=== PATIENT | male | born 2000 | race Caucasian/White ===

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

== ENCOUNTER 2022-10-04 20:21 | Inpatient (IN) | payer MEDICAID, OTHER ==
--- NOTE | 2022-10-05 02:18 | ED ---
General Adult HPI - General Chief complaint: Psychiatric Symptoms Stated complaint: Mental Health Time Seen by Provider: 10/04/22 23:44 Source: patient Mode of arrival: ambulatory Limitations: no limitations - History of Present Illness Initial comments: This is a 22-year-old male with a past mental history including OCD presented to the emergency department for increasing racing thoughts and seeing "figures" in the room. The patient stated that he feels as if he is in his own had and has been talking himself down for multiple situations over the last several days. The patient stated that he thinks his OCD is getting worse and he did state that he is seeing "figures" in the room and discharged him and himself that it is not currently happening. The patient did state that he had thought of suicide but stated that he had no plan and that he would not do anything about it. The patient denied any other acute pain or complaints and denied any homicidal ideations. The patient also denied any auditory hallucinations. - Related Data Home Medications Medication Instructions Recorded Confirmed No Known Home Medications 10/02/18 10/02/18 Allergies Allergy/AdvReac Type Severity Reaction Status Date / Time No Known Allergies Allergy Verified 10/04/22 21:30 Review of Systems ROS Statement: Those systems with pertinent positive or pertinent negative responses have been documented in the HPI. ROS Other: All systems not noted in ROS Statement are negative. Past Medical History Past Medical History: No Reported History History of Any Multi-Drug Resistant Organisms: None Reported Past Surgical History: No Surgical Hx Reported Past Psychological History: No Psychological Hx Reported Past Alcohol Use History: None Reported Past Drug Use History: None Reported General Exam Limitations: no limitations General appearance: alert, in no apparent distress Head exam: Present: atraumatic, normocephalic, normal inspection Eye exam: Present: normal appearance, PERRL Pupils: Present: normal accommodation ENT exam: Present: normal exam, normal oropharynx, mucous membranes moist Neck exam: Present: normal inspection, full ROM Respiratory exam: Present: normal lung sounds bilaterally Cardiovascular Exam: Present: regular rate, normal rhythm, normal heart sounds GI/Abdominal exam: Present: soft, normal bowel sounds Extremities exam: Present: normal inspection, full ROM Back exam: Present: normal inspection, full ROM Neurological exam: Present: alert, oriented X3, CN II-XII intact Psychiatric exam: Present: normal affect, normal mood Skin exam: Present: warm, dry Course Vital Signs 10/04/22 21:30 Temperature 97.3 F L Pulse Rate 86 Respiratory 18 Rate Blood Pressure 149/71 O2 Sat by Pulse 98 Oximetry Medical Decision Making - Medical Decision Making Was pt. sent in by a medical professional or institution (JESSICA Sage, MANAGER OF CHANGE, urgent care, hospital, or [place] [facility] [place] facility...) When possible be specific @ -No Did you speak to anyone other than the patient for history (EMS, parent, family, police, friend...)? What history was obtained from this source @ -No Did you review nursing and triage notes (agree or disagree)? Why? @ -I reviewed and agree with nursing and triage notes Were old charts reviewed (outside hosp., previous admission, EMS record, old EKG, old radiological studies, urgent care reports/EKG's, [place] health care facility records)? Report findings @ -No old charts were reviewed Differential Diagnosis (chest pain, altered mental status, abdominal pain women, abdominal pain men, vaginal bleeding, weakness, fever, dyspnea, syncope, headache, dizziness, GI bleed, back pain, seizure, CVA, palpatations, mental health)? @ -Acute psychosis, hallucinations, auditory hallucinations EKG interpreted by me (3pts min.). @ -None X-rays interpreted by me (1pt min.). @ -None done CT interpreted by me (1pt min.). @ -None done U/S interpreted by me (1pt. min.). @ -None done What testing was considered but not performed or refused? (CT, X-rays, U/S, labs)? Why? @ -None What meds were considered but not given or refused? Why? @ -None Did you discuss the management of the patient with other professionals (professionals i.e. JESSICA Sage, MANAGER OF CHANGE, lab, RT, psych nurse, director of social services, toddler lead teacher, teacher, chief scientific officer, case folder)? Give summary @ -Yes, EPS nurse Was smoking cessation discussed for >3mins.? @ -Yes Was critical care preformed (if so, how long)? @ -No Were there social determinants of health that impacted care today? How? (Homelessness, low income, unemployed, alcoholism, drug addiction, transportation, low edu. Level, literacy, decrease access to med. care, alf, rehab)? @ -No Was there de-escalation of care discussed even if they declined (Discuss DNR or withdrawal of care, Hospice)? DNR status @ -No What co-morbidities impacted this encounter? (DM, HTN, Smoking, COPD, CAD, Cancer, CVA, ARF, Chemo, Hep., AIDS, mental health diagnosis, sleep apnea, morbid obesity)? @ -OCD Was patient admitted / discharged? Hospital course, mention meds given and route, prescriptions, significant lab abnormalities, going to OR and other pertinent info. @ -The patient was seen and evaluated emergency department. Physical exam, the patient was resting in bed without any acute complaints. The patient did have mildly pressured speech however did not have any complaints of suicidal or homicidal ideations. Due to the nature the patient's complaints, the patient was medically cleared for EPS to evaluate the patient. EPS evaluated the pat ient and did note that the patient was likely having conversations of OCD and he was given the option of discharge or admission. The patient did choose admission and the patient was admitted upstairs to the behavioral health team. The patient was admitted in stable condition. Undiagnosed new problem with uncertain prognosis? @ -No Drug Therapy requiring intensive monitoring for toxicity (Heparin, Nitro, Insulin, Cardizem)? @ -No Were any procedures done? @ -No Diagnosis/symptom? @ -Visual hallucinations, OCD Acute, or Chronic, or Acute on Chronic? @ -Acute on chronic Uncomplicated (without systemic symptoms) or Complicated (systemic symptoms)? @ -Uncomplicated Side effects of treatment? @ -No Exacerbation, Progression, or Severe Exacerbation? @ -No Poses a threat to life or bodily function? How? (Chest pain, USA, SD, pneumonia, PE, COPD, DKA, ARF, appy, cholecystitis, CVA, Diverticulitis, Homicidal, Suicidal, threat to staff... and all critical care pts) @ -No Disposition Clinical Impression: Hallucinations, Acute anxiety Disposition: ADMITTED IP TO THIS [facility] Condition: Stable Is patient prescribed a controlled substance at d/c from ED?: No Referrals: None,Stated [Primary Care Provider] - 1-2 days Time of Disposition: 02:00 Decision to Admit Reason: Admit from EC Decision Date: 10/05/22 Decision Time: 02:00
[2022-10-05] MEDS ORDERED: MAGNESIUM HYDROXIDE 2,400 MG/10 ML CUP PO PRN (03:11)
[2022-10-05] MEDS ORDERED: ACETAMINOPHEN TAB 325 MG TAB PO PRN (03:11)
[2022-10-05] MEDS ORDERED: MAG HYDROX/AL HYDROX/SIMETH 30 ML CUP PO PRN (03:11)
[2022-10-05] MEDS ORDERED: LORazepam 1 MG TAB PO PRN (03:11)
[2022-10-05] MEDS ORDERED: HALOPERIDOL LACTATE 5 MG/ML 1 ML VIAL IM PRN (03:11)
[2022-10-05] MEDS ORDERED: LORazepam 2 MG/ML INJ IM PRN (03:15)
[2022-10-05] MEDS: LORazepam 1 MG TAB PO PRN ×2 (04:30→13:29)
[2022-10-05 10:50] VITALS: BMI 16.2
--- NOTE | 2022-10-05 13:05 | P.HP ---
Psychiatric H&P - . H&P Date: 10/05/22 History & Physical: Allergies Allergy/AdvReac Type Severity Reaction Status Date / Time No Known Allergies Allergy Verified 10/05/22 02:59 Vital Signs Temp 98.1 F 10/05/22 06:31 Pulse 80 10/05/22 06:31 Resp 18 10/05/22 06:31 BP 132/68 10/05/22 06:31 Pulse Ox 98 10/05/22 06:31 FiO2 Intake & Output 10/04/22 10/05/22 10/05/22 18:59 06:59 18:59 Weight 55.849 kg 55.849 kg Laboratory Last Values Coronavirus (PCR) Not Detected (Not Detectd) 10/05/22 02:13 10/05/22 12:01 IDENTIFYING DATA: Patient is a [22-year-old male, currently lives with his girlfriend, is unemployed.] HPI: Patient presented to the hospital yesterday complaining of hallucinations and severe anxiety and paranoia. Patient had been claiming that he has OCD and not receiving any treatment and not taking care of himself well and was agreeable to sign AFV. Patient was admitted last night and agreeable to be seen today by parts data writer in the office. Patient did appear to be mildly disheveled in appearance. He states that he has been having an increase in his anxiety and his "OCD symptoms". He claims that he has significant racing thoughts and paranoia. He claims that he has been having difficulties with sleep, poor appetite. Claims that his been not taking care of himself well at home and feeling depressed. He states that he had visual hallucinations and auditory as well when he saw "a dark figure" and states that he was "freaked out". He claims that he could not hear what the figure was talking to her. He states that it was fairly distressing to him and he was scared. He claims that he is afraid of contamination and frequently washes his hands and also is obsessed with "order". He claims that this is taking up a significant amount of time in his life. He states that he is also being irritable and having significant fights and stressors in his relationship with his girlfriend lately. He claims that he has been having passive thoughts about suicide however no intent or plan. Patient denies any current suicidal or homicidal ideations intent or plan. At this time patient denies any current auditory or visual hallucinations. Patient admits to using cannabis daily, about 0.5 gm per day. deniesusing any other rec drug use. PAST PSYCHIATRIC HISTORY: Patient states that [he has OCD, anxiety and depression]. [Patient denies being on any psychiatric medications.] [Patient denies any previous psychiatric hospitalizations.] [Patient denies any psychiatric outpatient follow-up.] [Patient denies any history of suicide attempts in the past.] Past Medical History: No Reported History History of Any Multi-Drug Resistant Organisms: None Reported Past Surgical History: No Surgical Hx Reported Past Psychological History: No Psychological Hx Reported Past Alcohol Use History: None Reported Past Drug Use History: None Reported ALLERGIES: as per EMR CHEMICAL DEPENDENCY HISTORY: as per HPI FAMILY PSYCHIATRIC/SUBSTANCE USE HISTORY: Claims that his mother has schizophrenia SOCIAL HISTORY: Patient was born and raised in [facility]. He claims that he completed high school. 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 Claims that he does not have any legal history. Does not have any kids. He is currently unemployed and lives with his girlfriend. MENTAL STATUS EXAM: General Appearance: Patient appears to be ., Tall, slightly disheveled, stated age is alert, [directable, and attempts to cooperate]. Patient appears to have [poor] hygiene and grooming. Behavior: Patient is seated without any agitated behavior. Attempts to cooperate. Appears anxious. Speech: Patient's speech is [fluent and nonpressured.] Hesitant at times Mood/Affect: Patient reports their mood is [depressed and anxious], affect is congruent and constricted. Suicidality/Homicidality: Patient denies having any homicidal ideation intent or plan. [Denies any suicidal ideations intent or plan] Perceptions: Patient denies any visual hallucinations [and denies any auditory hallucinations] Though content/process: [There is no evidence of any delusional thought content and thought process is linear and goal-directed.] Focus on his symptoms. Memory and concentration: AOX3, grossly intact for the purposes of this session. Can spell "WORLD" backwards Judgment and insight: [poor] STRENGTHS/WEAKNESSES: strength is that patient is [resilient]. Weakness is that patient [has poor judgment and significant family hx.] INTELLECT: [average] IMPRESSIONS: []Psychosis unspecified OCD cannabis use disorder PLAN: -Patient is admitted under [voluntary] status to [facility]HU for stabilization of psychiatric symptoms and safety. Patient has signed [adult voluntary form and] [medication consent] and is placed in patient's chart. -Medications : Will start patient on []Zoloft 50 mg daily for mood/anxiety, seroquel 25 mg qhs for insomnia/psychosis. -Ativan [and Haldol] PRN for agitation/aggression [-Patient was counselled on substance abuse and desired to cut back on use] -Patient was informed of the risks, benefits and side effects of the medication and patient verbally consented to taking the medications. Patient signed med consent form and was placed in chart. -Internal Medicine consult to perform medical evaluation and physical. -NRT - not needed as patient does not smoke. -SW on board for discharge planning. Encourage patient to participate in groups to work on coping skills. 10/05/22 12:58
[2022-10-05] MEDS: SERTRALINE 50 MG TAB PO SCH (13:29)
[2022-10-05] MEDS: hydrOXYzine pamoate 25 MG CAP PO PRN (16:12)
[2022-10-05] MEDS: haloperidoL 5 MG TAB PO PRN (16:15)
[2022-10-05] MEDS ORDERED: QUEtiapine 25 MG TAB PO SCH (21:00)
[2022-10-05] MEDS ORDERED: QUEtiapine 50 MG TAB PO SCH (21:00)
[2022-10-06] MEDS: SERTRALINE 50 MG TAB PO SCH (07:45)
[2022-10-06] MEDS: LORazepam 1 MG TAB PO PRN ×2 (09:15→15:04)
--- NOTE | 2022-10-06 10:29 | P.PN ---
Progress Note - Text Progress Note Date: 10/06/22 Interval History: Patient was seen today and was agreeable to speak to group underwriter in the office. he was sitting in on group today. he continues to state that he has severe anxiety however feels that the zoloft has been helping. He claims that he has been struggling with "cleanliness and also order". He states that he is still having some obsessions however states that the Zoloft has been helping "take my mind off of it". He appears to be having a brighter affect today compared to yesterday. States that he is trying to go to groups as much as he can. He states that he was able to sleep about 2-3 hours last night and was agreeable to have his Seroquel increased. States that his appetite is still somewhat poor but did have breakfast this morning. At this time he is denying any auditory or visual hallucinations and denying any suicidal or homicidal ideations intent or plan. He asked multiple questions about his medications and the plan, not reporting any side effects at this time. Mental Status exam: General Appearance: Patient appears to be, Tall, less disheveled, stated age is alert, directable, and attempts to cooperate. Patient appears to have improving hygiene and grooming. Behavior: Patient is seated without any agitated behavior. Attempts to cooperate. Appears less anxious. Speech: Patient's speech is fluent and nonpressured. Hesitant at times Mood/Affect: Patient reports their mood is anxious, affect is congruent and constricted. Suicidality/Homicidality: Patient denies having any homicidal ideation intent or plan. Denies any suicidal ideations intent or plan Perceptions: Patient denies any visual hallucinations and denies any auditory hallucinations Though content/process: There is no evidence of any delusional thought content and thought process is linear and goal-directed. Focus on his symptoms and medications. Memory and concentration: AOX3, grossly intact for the purposes of this session. Judgment and insight: improving mildly IMPRESSIONS: Psychosis unspecified OCD cannabis use disorder PLAN: -Patient is admitted under voluntary status to MHU for stabilization of psychiatric symptoms and safety. Patient has signed adult voluntary form and medication consent -Medications : increase Zoloft 100 mg daily for mood/anxiety, increase seroquel 100 mg qhs for insomnia/psychosis. continue with vistaril prn for anxiety. -Ativan and Haldol PRN for agitation/aggression -NRT - not needed as patient does not smoke. -SW on board for discharge planning. Encourage patient to participate in groups to work on coping skills. continue with titration of medications and likely discharge early next week if he continues to improve.
[2022-10-06] MEDS: QUEtiapine 100 MG TAB PO SCH (20:31)
--- NOTE | 2022-10-07 04:26 | P.CONS ---
History of Present Illness - Reason for Consult Consult date: 10/07/22 - History of Present Illness The patient is a 22-year-old male with a PMH of OCD and anxiety who presents to the emergency room with complaints of paranoid thoughts as well as visual hallucinations. The patient reports recreational marijuana use but denied tobacco or alcohol use. Patient denied physical complaints at the time of interview. He reports that he wishes to quit his video game addiction. Denies experiencing chest discomfort, shortness of breath, fever, chills, cough, nausea, vomiting, abdominal pain, diarrhea. Review of systems: Pertinent positives and negatives as discussed in HPI, a complete review of systems was performed and all other systems are negative. Physical examination: General: non toxic, no distress, appears at stated age, underweight Derm: no unusual rashes/lesions, no unusual ecchymoses, warm, dry Head: atraumatic, normocephalic, symmetric Eyes: EOMI, no lid lag, anicteric sclera ENT: Nose and ears atraumatic, no thrush, no pharyngeal erythema Neck: trachea midline, supple Mouth: no lip lesion, mucus membranes moist Cardiovascular: S1S2 reg, no murmur, no edema Lungs: CTA bilateral, no rhonchi, no rales , no accessory muscle use Abdominal: soft, nontender to palpation, no guarding Ext: no gross muscle atrophy, no contractures, Neuro: No gross focal neuro deficits noted Psych: Alert, oriented, appropriate affect Assessment: Marijuana abuse Anxiety, visual hallucinations Imaging: None performed Data Review: Awaiting lab results Plan: Advised patient on importance of marijuana use cessation Defer management of anxiety and visual hallucinations to primary psychiatry service Thank you for allowing us to participate in the care of this patient. We will f marcio peripherally. Do not hesitate to contact us with questions. Someone can be reached from the [facility] hospitalist group at all hours of the day at [phone]. Past Medical History Past Medical History: No Reported History History of Any Multi-Drug Resistant Organisms: None Reported Past Surgical History: No Surgical Hx Reported Smoking Status: Former smoker - Past Family History Father Family Medical History: Hypertension Medications and Allergies Home Medications Medication Instructions Recorded Confirmed Type No Known Home Medications 10/02/18 10/05/22 History Allergies Allergy/AdvReac Type Severity Reaction Status Date / Time No Known Allergies Allergy Verified 10/05/22 02:59 Physical Exam Vitals: Vital Signs Temp Pulse Resp BP Pulse Ox 10/06/22 06:45 97.9 F 83 16 107/57 100
[2022-10-07] MEDS: LORazepam 1 MG TAB PO PRN ×2 (06:01→13:05)
[2022-10-07] MEDS: SERTRALINE 100 MG TAB PO SCH (08:06)
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
[2022-10-07] MEDS: hydrOXYzine pamoate 25 MG CAP PO PRN (17:21)
[2022-10-07] MEDS: haloperidoL 5 MG TAB PO PRN (17:22)
[2022-10-07] MEDS: QUEtiapine 100 MG TAB PO SCH (19:55)
[2022-10-07] MEDS: MELATONIN 5 MG TABLET PO SCH (19:55)
[2022-10-08] MEDS: LORazepam 1 MG TAB PO PRN ×3 (05:03→18:04)
[2022-10-08] MEDS: SERTRALINE 100 MG TAB PO SCH (08:32)
--- NOTE | 2022-10-08 13:46 | P.PN ---
Progress Note - Text Progress Note Date: 10/08/22 Interval History: Patient was seen today and was agreeable to speak to publications writer in the office. He was observed to be participating in groups today. Patient is somewhat concrete and med focused. He says he did not read the OCD handout that was provided yesterday due to the overwhelming amount of paperwork is received in groups etc. He was encouraged to do so at an attempt to gain insight over his OCD symptoms. This provider went over step one of the brain lock handout which included relabeling OCD thoughts/actions as such. Patient states that with the current medication, he has noticed less fixation on contamination and germs. However, he states that when he does notice his concerns, he continues to experience high anxiety regarding them. He requests for the Zoloft to be increased although we discussed that the efficacy is felt after a few weeks. Patient continues to report trouble falling asleep at night with Seroquel and melatonin. States that his appetite is improving. At this time he is denying any auditory or visual hallucinations and denying any overt suicidal or homicidal ideation intent or plan. Mental Status exam: General Appearance: Patient appears to be, Tall, less disheveled, stated age is alert, directable, and attempts to cooperate. Patient appears to have improving hygiene and grooming. Behavior: Patient is seated without any agitated behavior. Attempts to cooperate. Speech: Patient's speech is fluent and nonpressured. Hesitant at times Mood/Affect: Patient reports their mood is anxious, affect is congruent and constricted. Suicidality/Homicidality: Patient denies having any homicidal ideation intent or plan. Denies any suicidal ideation intent or plan Perceptions: Patient denies any visual hallucinations and denies any auditory hallucinations Though content/process: There is no evidence of any delusional thought content and thought process is linear and goal-directed. Focus on his symptoms and medications. Memory and concentration: AOX3, grossly intact for the purposes of this session. Judgment and insight: improving mildly IMPRESSIONS: Psychosis unspecified OCD, with good insight cannabis use disorder PLAN: -Patient is admitted under voluntary status to [facility] for stabilization of psychiatric symptoms and safety. Patient has signed adult voluntary form and medication consent -Medications : Increase Zoloft to 150 mg daily for mood/anxiety starting tomorrow Increase seroquel to 150 mg qhs for insomnia/psychosis Continue melatonin 5 mg qHS for sleep continue with vistaril prn for anxiety. -Brain Lock handout on OCD -Ativan and Haldol PRN for agitation/aggression -NRT - not needed as patient does not smoke. -SW on board for discharge planning. Encourage patient to participate in groups to work on coping skills. continue with titration of medications and likely discharge Monday if he continues to improve.
[2022-10-08] MEDS: haloperidoL 5 MG TAB PO PRN (14:43)
[2022-10-08] MEDS: QUEtiapine 100 MG TAB PO SCH (20:20)
[2022-10-08] MEDS: MELATONIN 5 MG TABLET PO SCH (20:20)
[2022-10-09] MEDS: SERTRALINE 100 MG TAB PO SCH (07:59)
[2022-10-09] MEDS: LORazepam 1 MG TAB PO PRN ×2 (08:00→14:20)
[2022-10-09 14:35] VITALS: RESP 16
--- NOTE | 2022-10-09 15:02 | P.PN ---
Progress Note - Text Progress Note Date: 10/09/22 Interval History: Patient was seen today and was agreeable to speak to health technical writer in the office. Jaden friedman is somewhat concrete and med focused. He vaguely says he read handout on OCD. Patient states that with the current medication, he has noticed less fixation on contamination and germs. He reports having significantly better mood and says he has not noticed anxiety today. He says "this is the best I felt in many days ". He is future oriented. He reports better sleep last night and says he has "great "energy. States that his appetite is improving. At this time he is denying any auditory or visual hallucinations and denying any overt suicidal or homicidal ideation intent or plan. Patient is compliant with treatment and denies Mental Status exam: General Appearance: Patient appears to be, Tall, less disheveled, stated age is alert, directable, and attempts to cooperate. Patient appears to have improving hygiene and grooming. Behavior: Patient is seated without any agitated behavior. Attempts to cooperate. Speech: Patient's speech is fluent and nonpressured. Hesitant at times Mood/Affect: Patient reports their mood is euthymic, affect is congruent and constricted. Suicidality/Homicidality: Patient denies having any homicidal ideation intent or plan. Denies any suicidal ideation intent or plan Perceptions: Patient denies any visual hallucinations and denies any auditory hallucinations Though content/process: There is no evidence of any delusional thought content and thought process is linear and goal-directed. Focus on his symptoms and medications. Memory and concentration: AOX3, grossly intact for the purposes of this session. Judgment and insight: improving mildly IMPRESSIONS: Psychosis unspecified OCD, with good insight cannabis use disorder PLAN: -Patient is admitted under voluntary status to [facility] for stabilization of psychiatric symptoms and safety. Patient has signed adult voluntary form and medication consent -Medications : Continue Zoloft 150 mg daily for mood/anxiety starting tomorrow Continue seroquel 150 mg qhs for insomnia/psychosis Continue melatonin 5 mg qHS for sleep continue with vistaril prn for anxiety. -Brain Lock handout on OCD -Ativan and Haldol PRN for agitation/aggression -NRT - not needed as patient does not smoke. -SW on board for discharge planning. Encourage patient to participate in groups to work on coping skills. Likely discharge Monday if he continues to improve.
[2022-10-09] MEDS: QUEtiapine 100 MG TAB PO SCH (20:05)
[2022-10-09] MEDS: MELATONIN 5 MG TABLET PO SCH (20:06)
[2022-10-10] MEDS: SERTRALINE 100 MG TAB PO SCH (08:14)
[2022-10-10 08:16] VITALS: TEMP 98.4
--- NOTE | 2022-10-10 10:32 | P.DS ---
Providers Date of admission: 10/05/22 03:04 Expected date of discharge: 10/10/22 Attending physician: Jamel Kuhn MD Consults: 10/05/22 03:11 Consult Physician Routine Consulting Provider: Poncho Nava Consult Reason/Comments: For H & P for Medical Follow Up Do you want consulting provider notified?: Yes Primary care physician: Stated None - Discharge Diagnosis(es) (1) Unspecified psychosis Current Visit: Yes Status: Acute Priority: High (2) OCD (obsessive compulsive disorder) Current Visit: Yes Status: Acute Priority: High (3) Cannabis use disorder Current Visit: Yes Status: Acute Priority: Low Hospital Course: Admission HPI: Admission note was completed by technical writer and editor "Patient is a 22-year-old male, currently lives with his girlfriend, is unemployed. Patient presented to the hospital yesterday complaining of hallucinations and severe anxiety and paranoia. Patient had been claiming that he has OCD and not receiving any treatment and not taking care of himself well and was agreeable to sign AFV. Patient was admitted last night and agreeable to be seen today by technical writer and editor in the office. Patient did appear to be mildly disheveled in appearance. He states that he has been having an increase in his anxiety and his "OCD symptoms". He claims that he has significant racing thoughts and paranoia. He claims that he has been having difficulties with sleep, poor appetite. Claims that his been not taking care of himself well at home and feeling depressed. He states that he had visual hallucinations and auditory as well when he saw "a dark figure" and states that he was "freaked out". He claims that he could not hear what the figure was talking to her. He states that it was fairly distressing to him and he was scared. He claims that he is afraid of contamination and frequently washes his hands and also is obsessed with "order". He claims that this is taking up a significant amount of time in his life. He states that he is also being irritable and having significant fights and stressors in his relationship with his girlfriend lately. He claims that he has been having passive thoughts about suicide however no intent or plan. Patient denies any current suicidal or homicidal ideations intent or plan. At this time patient denies any current auditory or visual hallucinations. Patient admits to using cannabis daily, about 0.5 gm per day. denies using any other rec drug use." Hospital course: Upon admission to the unit patient was directable and agreeable to commence treatment and signed adult voluntary form . Patient got along well with other patients on the unit and followed unit protocol. Patient was compliant with the medications and denied any side effects throughout hospital course. Patient was started on Zoloft and increased to a dose of 150 mg daily for mood/anxiety, Seroquel increased to a dose of 150 mg daily at bedtime for insomnia/psychosis. Patient spoke of his stressors and engaged in therapy both group and individual. Patient was also seen by medical team for history and physical exam. Througho ut the course of the hospitalization patient gradually improved with regards to mood, anxiety, paranoia/psychosis, sleep and became more future oriented with improved insight and judgment. On the day of discharge patient denied any suicidal or homicidal ideations intent or plan denied any auditory or visual hallucinations. Patient endorsed wanting to live for his future and his family. The patient denied any access to guns or weapons. Patient denied any paranoia and did not endorse any delusions. Patient does have a significant history of substance abuse and was counseled on abstaining from all substances including alcohol and marijuana. Patient states that he wants to quit marijuana on his own and wishes to do this "cold turkey". Patient was also counseled on the medications and need for regular compliance and was encouraged to follow-up with their outpatient appointment for mental health and also for primary care. Prior to discharge a family meeting will be arranged by medical social worker to answer any questions and ensure safety upon discharge. Mental status exam: General Appearance: Patient appears to be thin, stated age is alert, pleasant, and cooperative. Patient is in no acute distress and has improved hygiene and grooming Behavior: Patient is calmly seated without any agitated behavior. Speech: Patient's speech is fluent and nonpressured. Mood/Affect: Patient reports their mood is "better", affect is congruent and euthymic. Suicidality/Homicidality: Patient denies having any suicidal or homicidal ideation intent or plan. Perceptions: Patient denies any auditory or visual hallucinations. Though content/process: There is no evidence of any delusional thought content and thought process is linear and goal-directed. more future oriented Memory and concentration: AOX3, grossly intact for the purposes of this session. Can spell "WORLD" backwards correctly. Judgment and insight: improved with guarded prognosis Impression: Psychosis unspecified Cannabis use disorder OCD Plan: -Continue with discharge today as patient has improved and stabilized psychiatrically and is not currently an imminent threat to himself and/or others. -Continue medications: Zoloft 150 mg daily for mood/anxiety, Seroquel 150 mg daily at bedtime for psychosis/insomnia. -Patient was counseled on the need for medication compliance and appropriate follow-up at mental health and also primary care for medical issues. Patient verbalized understanding and agreed. -Social work to arrange for and conduct family meeting to ensure safety upon discharge and answer any questions/concerns. Social work also to arrange for patients follow up appointments for psychiatric care along with follow up with primary care provider. -Patient counseled on abstaining from recreational drugs and marijuana and alcohol. Was informed/educated on the adverse effects on their physical and mental health. Patient verbally agreed and understood. -Patient was instructed to return to the hospital or seek immediate medical care if their psychiatric or medical symptoms do worsen or reoccur. Allergies Allergy/AdvReac Type Severity Reaction Status Date / Time No Known Allergies Allergy Verified 10/05/22 02:59 Laboratory Results Coronavirus (PCR) Not Detected (Not Detectd) 10/05/22 02:13 Vital Signs Temp 98.4 F 10/10/22 08:15 Pulse 90 10/10/22 08:15 Resp 16 10/10/22 08:15 BP 131/81 10/10/22 08:15 Pulse Ox 98 10/10/22 08:15 FiO2 Intake & Output 10/09/22 10/10/22 10/10/22 18:59 06:59 18:59 Weight 57.7 kg Patient Condition at Discharge: Stable Plan - Discharge Summary Discharge Rx Participant: Yes New Discharge Prescriptions: New QUEtiapine [SEROquel] 150 mg PO HS 30 Days #45 tab Sertraline [Zoloft] 150 mg PO DAILY 30 Days #45 tab Discharge Medication List QUEtiapine [SEROquel] 150 mg PO HS 30 Days #45 tab 10/10/22 [Rx] Sertraline [Zoloft] 150 mg PO DAILY 30 Days #45 tab 10/10/22 [Rx] Follow up Appointment(s)/Referral(s): None,Stated [Primary Care Provider] - 1-2 days Activity/Diet/Wound Care/Special Instructions: Avoid the use of street drugs and alcohol. Take all medications as prescribed. When you are in need of refills on your medications, please contact your medical provider and/or outpatient psychiatrist to have this done. Please go to scheduled outpatient appointments for aftercare treatment. If symptoms return or become worse, call the crisis line at and/or go to the nearest emergency room for evaluation. Discharge Disposition: HOME SELF-CARE
[2022-10-10] MEDS: LORazepam 1 MG TAB PO PRN (10:34)
[2022-10-10 10:35] VITALS: BP 115/88; PULSE 95
== END 2022-10-10 12:32 | disposition home or self-care (01) | DRG 751 ==
LOC: EC 20:21 → 3MHU 10-05 03:04
PROVIDERS: ADMIT Psychiatry & Neurology Psychiatry; ATTEND Psychiatry & Neurology Psychiatry
DX: F29 Unspecified psychosis not due to a substance or known physiological condition (principal); R45.851 Suicidal ideations; Z20.822 Contact with and (suspected) exposure to COVID-19; Z28.310 Unvaccinated for COVID-19; F42.9 Obsessive-compulsive disorder, unspecified; F12.10 Cannabis abuse, uncomplicated; F41.9 Anxiety disorder, unspecified; F32.A Depression, unspecified; G47.00 Insomnia, unspecified; Z87.891 Personal history of nicotine dependence; Z56.0 Unemployment, unspecified; Z81.8 Family history of other mental and behavioral disorders; Z71.51 Drug abuse counseling and surveillance of drug abuser; Z71.41 Alcohol abuse counseling and surveillance of alcoholic
CPT/HCPCS: 82075; 87635; 99285